=== PATIENT | male | born 1990 | race African-American/Black ===

== ENCOUNTER 2017-07-01 11:41 | Emergency (ER) | payer SELFPAY ==
[~2017-07-01] VITALS: Ht 165.1 cm; Wt 70.3 kg
[~2017-07-01 11:41] MED LIST: KEFLEX 500MG.500 MG PO
[2017-07-01 12:11] LABS: URINE BILIRUBIN - DIPSTICK NEGATIVE (NEG); URINE BLOOD NEGATIVE (NEG)
--- NOTE | 2017-07-01 12:17 | Urgent Treatment Center Report ---
History of Present Issue Date/Time Seen by Provider 07/01/17 1210 Visit Reason Pt arrived:Walked Presenting Problem:C/O LOWER ABD PAIN AND LOWER BACK PAIN SINCE THURSDAY. Location if Accident: Onset of symptoms date/time:/ or onset unknown for:MEDICAL HX UNKNOWN Have you (or family members/close friends) recently traveled outside the [place]? N If Yes, where/when: Have you had exposure to infectious disease within the past month? TB? Other? Specify: Patient advised that for about a week now he has been having eppisodes of abdominal cramping that radiates into his back area States that pain last about 2 minutes then gone State that this cramping like pain comes and goes State that he has not noticed anything that makes it better or worse and had several eppisodes of diarrhea also ALLERGIES Coded Allergies: No Known Allergies (02/24/16) History Medical History General CAD? No Angina: No [place]: No Hypertension? No Hyperlipidemia? No CHF? No DVT? No PE? No COPD? No Asthma? No Anemia? No GERD? No Gastric ulcers? No GI Bleed? No Hernia? No Thyroid Problems? No Hypothyroidism? No CVA? No Seizures? No Diabetes? No Renal Insuffiency? No UTI? No Stones? No BPH? No GB Disease: No Nephritic Syndrome? No Asplenia? No Hepatitis? No Sickle Cell Disease? No Arthritis? No Migraines? No Cataracts? No Glaucoma? No MRSA? No HIV? No TB? No Anxiety? No Depression? No Cancer? No More? No Immunization HX DT/Tetanus 1-4 Years Ago Surgical Hx Previous Surgery?Y LEFT FOOT SURGERY Social History Smoking Hx Smoker: Never Smoker Tobacco: No Alcohol Alcohol: No Review of Systems All Other Systems Reviewed and Negative Gastrointestinal abdominal pain, denies constipation, diarrhea, nausea, denies vomiting Physical Exam Vital Signs Vital Signs Date Time Temp Pulse Resp B/P Pulse O2 O2 Flow FiO2 Ox Delivery Rate 07/01 1201 98.0 98 18 148/105 100 General Appearance normal appearance, WD/WN, no apparent distress Respiratory Status Yes: trachea midline, chest symmetrical, non tender chest. No: respiratory distress. Cardiovascular normal exam, regular rate/rhythm, no peripheral edema Gastrointestinal non tender, no guarding, no rebound, hyperactive bowel sounds Neurologic alert, normal exam, oriented x 3 Medical Decision Making LABS/Meds/Orders Pt receiving controlled substance in ED? No Results/Orders Laboratory Tests 07/01/17 1209: Urine Color YELLOW, Urine Appearance Clear, Urine pH 5.5, Ur Specific [place] 1.005, Urine Protein NEGATIVE, Urine Ketones NEGATIVE, Urine Blood NEGATIVE, Urine Nitrate NEGATIVE, Urine Bilirubin NEGATIVE, Urine Urobilinogen 0.2, Ur Leukocyte Esterase NEGATIVE, Urine Glucose NEGATIVE Orders Procedure Date/time Status [facility] URINE DIPSTICK 07/01 120 Complete Progress [facility] Progress Notes Comment Patient educated and advised that it was recommended due to abdominal pain that he be transfered to the ER for further work up and CT scan of abdomen Patient refused Advised that he did not want to go to ER that he is not having any pain at this time and did not want to go over there. Patient informed of risks associated with abdominal pain understood and still declined transfer Departure Departure Time of Disposition 1215 Disposition Against Medical Advice Clinical Impression Primary Impression: Gastroenteritis Condition STABLE Patient Instructions DI for Viral Gastroenteritis -- Adult Additional Instructions try very small amounts of water or suck on ice chips. diarrhea. children and infants should use products formulated for children, like oral rehydration solutions. Never give aspirin to children or teenagers with a viral illness. This can cause Abel syndrome, a potentially life-threatening condition. Discharge Counseling Counseled pt/family regarding diagnosis, home care, follow up needs at 1217
--- NOTE | 2017-07-01 12:17 | Urgent Treatment Center Report ---
History of Present Issue Date/Time Seen by Provider 07/01/17 1210 Visit Reason Pt arrived:Walked Presenting Problem:C/O LOWER ABD PAIN AND LOWER BACK PAIN SINCE THURSDAY. Location if Accident: Onset of symptoms date/time:/ or onset unknown for:MEDICAL HX UNKNOWN Have you (or family members/close friends) recently traveled outside the [place]? N If Yes, where/when: Have you had exposure to infectious disease within the past month? TB? Other? Specify: Patient advised that for about a week now he has been having eppisodes of abdominal cramping that radiates into his back area States that pain last about 2 minutes then gone State that this cramping like pain comes and goes State that he has not noticed anything that makes it better or worse and had several eppisodes of diarrhea also ALLERGIES Coded Allergies: No Known Allergies (02/24/16) History Medical History General CAD? No Angina: No [place]: No Hypertension? No Hyperlipidemia? No CHF? No DVT? No PE? No COPD? No Asthma? No Anemia? No GERD? No Gastric ulcers? No GI Bleed? No Hernia? No Thyroid Problems? No Hypothyroidism? No CVA? No Seizures? No Diabetes? No Renal Insuffiency? No UTI? No Stones? No BPH? No GB Disease: No Nephritic Syndrome? No Asplenia? No Hepatitis? No Sickle Cell Disease? No Arthritis? No Migraines? No Cataracts? No Glaucoma? No MRSA? No HIV? No TB? No Anxiety? No Depression? No Cancer? No More? No Immunization HX DT/Tetanus 1-4 Years Ago Surgical Hx Previous Surgery?Y LEFT FOOT SURGERY Social History Smoking Hx Smoker: Never Smoker Tobacco: No Alcohol Alcohol: No Review of Systems All Other Systems Reviewed and Negative Gastrointestinal abdominal pain, denies constipation, diarrhea, nausea, denies vomiting Physical Exam Vital Signs Vital Signs Date Time Temp Pulse Resp B/P Pulse O2 O2 Flow FiO2 Ox Delivery Rate 07/01 1201 98.0 98 18 148/105 100 General Appearance normal appearance, WD/WN, no apparent distress Respiratory Status Yes: trachea midline, chest symmetrical, non tender chest. No: respiratory distress. Cardiovascular normal exam, regular rate/rhythm, no peripheral edema Gastrointestinal non tender, no guarding, no rebound, hyperactive bowel sounds Neurologic alert, normal exam, oriented x 3 Medical Decision Making LABS/Meds/Orders Pt receiving controlled substance in ED? No Results/Orders Laboratory Tests 07/01/17 1209: Urine Color YELLOW, Urine Appearance Clear, Urine pH 5.5, Ur Specific [place] 1.005, Urine Protein NEGATIVE, Urine Ketones NEGATIVE, Urine Blood NEGATIVE, Urine Nitrate NEGATIVE, Urine Bilirubin NEGATIVE, Urine Urobilinogen 0.2, Ur Leukocyte Esterase NEGATIVE, Urine Glucose NEGATIVE Orders Procedure Date/time Status [facility] URINE DIPSTICK 07/01 120 Complete Progress [facility] Progress Notes Comment Patient educated and advised that it was recommended due to abdominal pain that he be transfered to the ER for further work up and CT scan of abdomen Patient refused Advised that he did not want to go to ER that he is not having any pain at this time and did not want to go over there. Patient informed of risks associated with abdominal pain understood and still declined transfer Departure Departure Time of Disposition 1215 Disposition Against Medical Advice Clinical Impression Primary Impression: Gastroenteritis Condition STABLE Patient Instructions DI for Viral Gastroenteritis -- Adult Additional Instructions try very small amounts of water or suck on ice chips. diarrhea. children and infants should use products formulated for children, like oral rehydration solutions. Never give aspirin to children or teenagers with a viral illness. This can cause Abel syndrome, a potentially life-threatening condition. Discharge Counseling Counseled pt/family regarding diagnosis, home care, follow up needs at 1217
[2017-07-01 12:18] VITALS: BP 148/105
--- OUTSIDE RECORDS SUMMARY | 2017-07-04 08:31 | External Medical Summary Rpt | CCD ---
Author Author , VIDYA DASILVA Address Unknown Phone [email or web address] Care Team Providers Care Business Operations Specialist Name Role Phone [facility], [facility] Purpose Continuity of Care Document - 12-23-2016 through 2016 Problems Code Diagnosis DOS Provider Status R040 EPISTAXIS 12-23-2016 [facility] Procedures Procedure DOS Code Location Performer Comment UNCLASSIF J3490 ERIS SCHULTE IED DRUGS 7 [facility] Encounters Encounter Start End Date Code Location Performer Type Date EMERGENCY [address]56 [facility] L[facility]/MODER SEVERITY HOSPITAL [facility] - [facility]
--- OUTSIDE RECORDS SUMMARY | 2017-07-04 08:31 | External Medical Summary Rpt | CCD ---
Demographics Preferred Language Sinhala Marital Status Unknown Yazidism Affiliation Unknown Race Unknown Ethnic Group Unknown Author Author , VIDYA DASILVA Address Unknown Phone Immunization No patient found.
--- OUTSIDE RECORDS SUMMARY | 2017-07-04 08:31 | External Medical Summary Rpt | CCD ---
Demographics Preferred Language Telugu Marital Status Unknown Hinduism Affiliation Unknown Race Unknown Ethnic Group Unknown Author Author , VIDYA DASILVA Address Unknown Phone Immunization No patient found.
--- OUTSIDE RECORDS SUMMARY | 2017-07-04 08:31 | External Medical Summary Rpt | CCD ---
Author Author , VIDYA DASILVA Address Unknown Phone [email or web address] Care Team Providers Care Master Carpenter Name Role Phone [facility], [facility] Purpose Continuity of Care Document - 03-26-2016 through 2016 Problems Code Diagnosis DOS Provider Status R040 EPISTAXIS 12-23-2016 [facility] Results Labs Lab Lab Date Result Refere Interp Status Commen Order Detail nces retati t Range on CHLAMYDIA AND GONORRHEA TESTING (12-08-2016 11:30) Chlamyd NEGATIV complet ia 017 E ed trachom 11:30 atis rRNA [Presen ce] in Unspeci fied specime n by Probe & target amplifi cation method Neisser POSITIV complet ia 017 E ed gonorrh 11:30 oeae rRNA [Presen ce] in Unspeci fied specime n by Probe & target amplifi cation method Treponema pallidum IgG Ab [Presence] in Serum by Immunoassay (12-08-2016 11:30) Trepone UNSATIS complet ma 017 FACTORY ed pallidu 11:30 : SERUM m IgG Ab HEMOLYZ [Presen ED ce] in Serum by Immunoa ssay CHLAMYDIA AND GONORRHEA TESTING (12-08-2016 11:30) COLLECT AH/GENP complet OR 017 ROBE ed 11:30 ETHNICI BLACK, complet TY 017 NON-HIS ed 11:30 PANIC KIT complet EXPIRAT 017 017 ed ION 11:30 DATE SYMPTOM YES complet S 017 ed 11:30 REASON SEX complet FOR 017 PARTNER ed REQUEST 11:30 REFERRA L SPECIME URINE complet N 017 ed SOURCE 11:30 PREGNAN NO complet T 017 ed 11:30 CHART N/A complet NUMBER 017 ed 11:30 Chlamyd Pending complet ia 017 ed trachom 11:30 atis rRNA [Presen ce] in Unspeci fied specime n by Probe & target amplifi cation method Neisser Pending complet ia 017 ed gonorrh 11:30 oeae rRNA [Presen ce] in Unspeci fied specime n by Probe & target amplifi cation method Treponema pallidum IgG Ab [Presence] in Serum by Immunoassay (12-08-2016 11:30) COLLECT AH/RTT complet OR 017 ed 11:30 ETHNICI BLACK/N complet TY 017 ON-HISP ed 11:30 PURPOSE DIAGNOS complet OF 017 TIC ed EXAM 11:30 SPECIME BLOOD complet N 017 ed SOURCE 11:30 CHART N/A complet NUMBER 017 ed 11:30 Trepone Pending complet ma 017 ed pallidu 11:30 m IgG Ab [Presen ce] in Serum by Immunoa ssay CHLAMYDIA AND GONORRHEA TESTING (03-26-2016 09:30) Chlamyd NEGATIV complet ia 016 E ed trachom 09:30 atis rRNA [Presen ce] in Unspeci fied specime n by Probe & target amplifi cation method Neisser NEGATIV complet ia 016 E ed gonorrh 09:30 oeae rRNA [Presen ce] in Unspeci fied specime n by Probe & target amplifi cation method CHLAMYDIA AND GONORRHEA TESTING (03-26-2016 09:30) COLLECT AH complet OR 016 ed 09:30 ETHNICI BLACK, complet TY 016 NON-HIS ed 09:30 PANIC KIT complet EXPIRAT 016 016 ed ION 09:30 DATE SYMPTOM NO complet S 016 ed 09:30 REASON VOLUNTE complet FOR 016 ER/MEDI ed REQUEST 09:30 JOSE PROBLEM SPECIME URINE complet N 016 ed SOURCE 09:30 PREGNAN NO complet T 016 ed 09:30 CHART N/A complet NUMBER 016 ed 09:30 Chlamyd Pending complet ia 016 ed trachom 09:30 atis rRNA [Presen ce] in Unspeci fied specime n by Probe & target amplifi cation method Neisser Pending complet ia 016 ed gonorrh 09:30 oeae rRNA [Presen ce] in Unspeci fied specime n by Probe & target amplifi cation method Procedures Procedure DOS Code Location Performer Comment UNCLASSIF J3490 [facility] Encounters Encounter Start End Date Code Location Performer Type Date HOSPITAL ERIS [place] [facility] EMERGENCY [address] ERIS 7 7 [facility] VISIT LOW/MODER SEVERITY
--- OUTSIDE RECORDS SUMMARY | 2017-07-04 08:31 | External Medical Summary Rpt | CCD ---
Author Author , VIDYA DASILVA Address Unknown Phone [email or web address] Care Team Providers Care Blueprint Blocker Name Role Phone [facility], [facility] Purpose Continuity of Care Document - 12-23-2016 through 2016 Problems Code Diagnosis DOS Provider Status R040 [facility]AXIS [facility] Procedures Procedure DOS Code Location Performer Comment UNCLASSIF J3490 ERIS SCHULTE IED DRUGS 7 [facility] Encounters Encounter Start End Date Code Location Performer Type Date EMERGENCY [address] [facility] 7 [facility] VISIT LOW/MODER SEVERITY HOSPITAL [facility] - [facility] T
--- OUTSIDE RECORDS SUMMARY | 2017-07-04 08:31 | External Medical Summary Rpt | CCD ---
Author Author , VIDYA DASILVA Address Unknown Phone [email or web address] Care Team Providers Care Processing Technician Name Role Phone [facility]available [facility], [facility] Purpose Continuity of Care Document - 03-26-2016 through 2016 Problems Code Diagnosis DOS Provider Status R040 EPISTAXIS 12-23-2016 [facility] Results Labs Lab Lab Date [...] Performer Type Date HOSPITAL ERIS [place] 7 [facility] T EMERGENCY [address] ERIS 7 7 [facility] T VISIT LOW/MODER SEVERITY
--- OUTSIDE RECORDS SUMMARY | 2017-07-04 08:32 | External Medical Summary Rpt ---
Author Author V[employer] Hearn, [employer] Organization [employer] Address Unknown Phone Unavailable Results CHLAMYDIA AND GONORRHEA TESTING Observa Value Referen Units Interpr Notes Date tion ce etation Range COLLECT AH/GENP No No No No Nov 20 OR ROBE informa informa informa informa 2017 tion in tion in tion in tion in 11:30 source source source source AM data data data data ETHNICI BLACK, No No No No Dec 08 TY NON-HIS informa informa informa informa 2017 PANIC tion in tion in tion in tion in 11:30 source source source source AM data data data data KIT No No No No Dec 08 EXPIRAT 017 informa informa informa informa 2017 ION tion in tion in tion in tion in 11:30 DATE source source source source AM data data data data SYMPTOM YES No No No No Dec 08 S informa informa informa informa 2017 tion in tion in tion in tion in 11:30 source source source source AM data data data data REASON SEX No No No No Dec 08 FOR PARTNER informa informa informa informa 2017 REQUEST tion in tion in tion in tion in 11:30 REFERRA source source source source AM L data data data data SPECIME URINE No No No No Dec 08 N informa informa informa informa 2017 SOURCE tion in tion in tion in tion in 11:30 source source source source AM data data data data PREGNAN NO No No No No Dec 08 T informa informa informa informa 2017 tion in tion in tion in tion in 11:30 source source source source AM data data data data CHART N/A No No No No Dec 08 NUMBER informa informa informa informa 2017 tion in tion in tion in tion in 11:30 source source source source AM data data data data Chlamyd NEGATIV No No No NEGATIV Dec 08 ia E informa informa informa E 2017 trachom tion in tion in tion in RESULT= 11:30 atis source source source WITHIN AM rRNA data data data NORMAL [Presen ce] in LIMITSP Unspeci OSITIVE fied specime RESULT= n by Probe & ABNORMA target LEQUIVO JOSE amplifi RESULT= cation method INDETER MINATEU NSATISF ACTORY RESULT= INVALID Neisser POSITIV No No No NEGATIV Dec 08 ia E informa informa informa E 2017 gonorrh tion in tion in tion in RESULT= 11:30 oeae source source source WITHIN AM rRNA data data data NORMAL [Presen ce] in LIMITSP Unspeci OSITIVE fied specime RESULT= n by Probe & ABNORMA target LEQUIVO JOSE amplifi RESULT= cation method INDETER MINATEU NSATISF ACTORY RESULT= INVALID THE APTIMA COMBO 2 ASSAY IS NOT INTENDE D FOR THE EVALUAT ION OF SUSPECT EDSEXUA L ABUSE OR FOR OTHER MEDICO- LEGAL INDICAT IONS. FOR THOSE PATIENT S FORWHOM A FALSE POSITIV E RESULT MAY HAVE ADVERSE PSYCHO- SOCIAL IMPACT, [facility] NG.\.br \This report contain s patient informa tion that must be protect ed in accorda nce with the Health Insuran ce Portabi lity and Account ability Act. Treponema pallidum IgG Ab [Presence] in Serum by Immunoassay Observa Value Referen Units Interpr Notes Date tion ce etation Range COLLECT AH/RTT No No No No Dec 08 OR informa informa informa informa 2017 tion in tion in tion in tion in 11:30 source source source source AM data data data data ETHNICI BLACK/N No No No No Dec 08 TY ON-HISP informa informa informa informa 2017 tion in tion in tion in tion in 11:30 source source source source AM data data data data PURPOSE DIAGNOS No No No No Dec 08 OF TIC informa informa informa informa 2017 EXAM tion in tion in tion in tion in 11:30 source source source source AM data data data data SPECIME BLOOD No No No No Dec 08 N informa informa informa informa 2017 SOURCE tion in tion in tion in tion in 11:30 source source source source AM data data data data CHART N/A No No No No Dec 08 NUMBER informa informa informa informa 2017 tion in tion in tion in tion in 11:30 source source source source AM data data data data Trepone UNSATIS No No No METHOD Dec 08 ma FACTORY informa informa informa OF 2017 pallidu : SERUM tion in tion in tion in ANALYSI 11:30 m IgG source source source S: AM Ab HEMOLYZ data data data EIANORM [Presen ED AL ce] in RANGE: Serum NON-DAIJA by CTIVE\. Immunoa br\This ssay report contain s patient informa tion that must be protect ed in accorda nce with the Health Insuran ce Portabi lity and Account ability Act. CHLAMYDIA AND GONORRHEA TESTING Observa Value Referen Units Interpr Notes Date tion ce etation Range COLLECT AH/GENP No No No No Dec 08 OR ROBE informa informa informa informa 2017 tion in tion in tion in tion in 11:30 source source source source AM data data data data ETHNICI BLACK, No No No No Dec 08 TY NON-HIS informa informa informa informa 2017 PANIC tion in tion in tion in tion in 11:30 source source source source AM data data data data KIT No No No No Dec 08 EXPIRAT 017 informa informa informa informa 2017 ION tion in tion in tion in tion in 11:30 DATE source source source source AM data data data data SYMPTOM YES No No No No Dec 08 S informa informa informa informa 2017 tion in tion in tion in tion in 11:30 source source source source AM data data data data REASON SEX No No No No Dec 08 FOR PARTNER informa informa informa informa 2017 REQUEST tion in tion in tion in tion in 11:30 REFERRA source source source source AM L data data data data SPECIME URINE No No No No Dec 08 N informa informa informa informa 2017 SOURCE tion in tion in tion in tion in 11:30 source source source source AM data data data data PREGNAN NO No No No No Dec 08 T informa informa informa informa 2017 tion in tion in tion in tion in 11:30 source source source source AM data data data data CHART N/A No No No No Dec 08 NUMBER informa informa informa informa 2017 tion in tion in tion in tion in 11:30 source source source source AM data data data data Chlamyd Pending No No No No Dec 08 ia informa informa informa informa 2017 trachom tion in tion in tion in tion in 11:30 atis source source source source AM rRNA data data data data [Presen ce] in Unspeci fied specime n by Probe & target amplifi cation method Neisser Pending No No No \.br\Dec 08 ia informa informa informa is 2017 gonorrh tion in tion in tion in report 11:30 oeae source source source contain AM rRNA data data data s [Presen patient ce] in Unspeci informa fied tion specime that n by must be Probe & target protect ed in amplifi accorda cation nce method with the Health Insuran ce Portabi lity and Account ability Act. Treponema pallidum IgG Ab [Presence] in Serum by Immunoassay Observa Value Referen Units Interpr Notes Date tion ce etation Range COLLECT AH/RTT No No No No Dec 08 OR informa informa informa informa 2017 tion in tion in tion in tion in 11:30 source source source source AM data data data data ETHNICI BLACK/N No No No No Dec 08 TY ON-HISP informa informa informa informa 2017 tion in tion in tion in tion in 11:30 source source source source AM data data data data PURPOSE DIAGNOS No No No No Dec 08 OF TIC informa informa informa informa 2017 EXAM tion in tion in tion in tion in 11:30 source source source source AM data data data data SPECIME BLOOD No No No No Dec 08 N informa informa informa informa 2017 SOURCE tion in tion in tion in tion in 11:30 source source source source AM data data data data CHART N/A No No No No Dec 08 NUMBER informa informa informa informa 2017 tion in tion in tion in tion in 11:30 source source source source AM data data data data Trepone Pending No No No \.br\Dec 08 ma informa informa informa is 2017 pallidu tion in tion in tion in report 11:30 m IgG source source source contain AM Ab data data data s [Presen patient ce] in Serum informa by nel Immunoa that ssay must be protect ed in accorda nce with the Health Insuran ce [employer] richardson and Account ability Act. CHLAMYDIA AND GONORRHEA TESTING Observa Value Referen Units Interpr Notes Date tion ce etation Range COLLECT AH No No No No Mar 26 OR informa informa informa informa 2016 tion in tion in tion in tion in 9:30 AM source source source source data data data data ETHNICI BLACK, No No No No Mar 26 TY NON-HIS informa informa informa informa 2016 PANIC tion in tion in tion in tion in 9:30 AM source source source source data data data data KIT No No No No Mar 26 EXPIRAT 016 informa informa informa informa 2016 ION tion in tion in tion in tion in 9:30 AM DATE source source source source data data data data SYMPTOM NO No No No No Mar 26 S informa informa informa informa 2016 tion in tion in tion in tion in 9:30 AM source source source source data data data data REASON VOLUNTE No No No No Mar 26 FOR ER/MEDI informa informa informa informa 2016 REQUEST JOSE tion in tion in tion in tion in 9:30 AM PROBLEM source source source source data data data data SPECIME URINE No No No No Mar 26 N informa informa informa informa 2016 SOURCE tion in tion in tion in tion in 9:30 AM source source source source data data data data PREGNAN NO No No No No Mar 26 T informa informa informa informa 2016 tion in tion in tion in tion in 9:30 AM source source source source data data data data CHART N/A No No No No Mar 26 NUMBER informa informa informa informa 2016 tion in tion in tion in tion in 9:30 AM source source source source data data data data Chlamyd NEGATIV No No No NEGATIV Mar 26 ia E informa informa informa E 2016 trachom tion in tion in tion in RESULT= 9:30 AM atis source source source WITHIN rRNA data data data NORMAL [Presen ce] in LIMITSP Unspeci OSITIVE fied specime RESULT= n by Probe & ABNORMA target LEQUIVO JOSE amplifi RESULT= cation method INDETER MINATEU NSATISF ACTORY RESULT= INVALID Neisser NEGATIV No No No NEGATIV Mar 26 ia E informa informa informa E 2016 gonorrh tion in tion in tion in RESULT= 9:30 AM oeae source source source WITHIN rRNA data data data NORMAL [Presen ce] in LIMITSP Unspeci OSITIVE fied specime RESULT= n by Probe & ABNORMA target LEQUIVO JOSE amplifi RESULT= cation method INDETER MINATEU NSATISF ACTORY RESULT= INVALID THE APTIMA COMBO 2 ASSAY IS NOT INTENDE D FOR THE EVALUAT ION OF SUSPECT EDSEXUA L ABUSE OR FOR OTHER MEDICO- LEGAL INDICAT IONS. FOR THOSE PATIENT S FORWHOM A FALSE POSITIV E RESULT MAY HAVE ADVERSE PSYCHO- SOCIAL IMPACT, [facility] MM[facility] RET[facility]I NG.\.br \This report contain s patient informa tion that must be protect ed in accorda nce with the Health Insuran ce Portabi lity and Account ability Act. CHLAMYDIA AND GONORRHEA TESTING Observa Value Referen Units Interpr Notes Date tion ce etation Range COLLECT AH No No No No Mar 26 OR informa informa informa informa 2016 tion in tion in tion in tion in 9:30 AM source source source source data data data data ETHNICI BLACK, No No No No Mar 26 TY NON-HIS informa informa informa informa 2016 PANIC tion in tion in tion in tion in 9:30 AM source source source source data data data data KIT No No No No Mar 26 EXPIRAT 016 informa informa informa informa 2016 ION tion in tion in tion in tion in 9:30 AM DATE source source source source data data data data SYMPTOM NO No No No No Mar 26 S informa informa informa informa 2016 tion in tion in tion in tion in 9:30 AM source source source source data data data data REASON VOLUNTE No No No No Mar 26 FOR ER/MEDI informa informa informa informa 2016 REQUEST JOSE tion in tion in tion in tion in 9:30 AM PROBLEM source source source source data data data data SPECIME URINE No No No No Mar 26 N informa informa informa informa 2016 SOURCE tion in tion in tion in tion in 9:30 AM source source source source data data data data PREGNAN NO No No No No Mar 26 T informa informa informa informa 2016 tion in tion in tion in tion in 9:30 AM source source source source data data data data CHART N/A No No No No Mar 26 NUMBER informa informa informa informa 2016 tion in tion in tion in tion in 9:30 AM source source source source data data data data Chlamyd Pending No No No No Mar 26 ia informa informa informa informa 2016 trachom tion in tion in tion in tion in 9:30 AM atis source source source source rRNA data data data data [Presen ce] in Unspeci fied specime n by Probe & target amplifi cation method Neisser Pending No No No \.br\Mar 26 ia informa informa informa is 2016 gonorrh tion in tion in tion in report 9:30 AM oeae source source source contain rRNA data data data s [Presen patient ce] in Unspeci informa fied tion specime that n by must be Probe & target protect ed in amplifi accorda cation nce method with the Health Insuran ce Portabi lity and Account ability Act.
--- OUTSIDE RECORDS SUMMARY | 2017-07-04 08:32 | External Medical Summary Rpt ---
[...] MAY HAVE ADVERSE PSYCHO- SOCIAL IMPACT, [facility].\.br \This report contain s [...] MAY HAVE ADVERSE PSYCHO- SOCIAL IMPACT, [facility] NG.\.br \This report contain s [...]
== END 2017-07-01 12:23 | disposition left against medical advice (07) ==
LOC: UTC 11:41
PROVIDERS: Nurse Practitioner
DX: A08.4 Viral intestinal infection, unspecified (principal)